=== PATIENT | female | born 1970 | race Caucasian/White ===

== ENCOUNTER 2021-06-09 17:00 | Outpatient (REF) | payer OTHER, SELFPAY | END 2021-06-09 17:01 | disposition home or self-care (01) | LOC: HO.LNP 17:00 | PROVIDERS: Visit Provider Hospitalist | DX: Z20.822 Contact with and (suspected) exposure to COVID-19 (principal); J01.90 Acute sinusitis, unspecified | CPT/HCPCS: U0003; U0005 ==

== ENCOUNTER 2022-02-25 08:03 | Outpatient (REF) | payer OTHER, SELFPAY ==
[2022-02-25 08:43] LABS: Hemoglobin 13.4 g/dl (12.0-16.0); Mean Corpuscular HGB Conc 32.7 g/dl (31.0-35.0); Mean Corpuscular Hemoglobin 29.9 pg (27.0-33.0); Mean Corpuscular Volume 91.5 fL (80.0-98.0); Mean Platelet Volume 9.8 fL (9.4-12.3); Platelet Count 257 X10*3/uL (160-400); Red Blood Count 4.48 X10*6/uL (4.20-5.50); Red Cell Distribution Width 12.6 % (11.0-16.0); White Blood Count 5.9 X10*3/uL (4.8-10.8)
[2022-02-25 09:27] LABS: Alanine Aminotransferase 18 U/L (0-31); Alkaline Phosphatase 91 U/L (39-117); Anion Gap 14 (12-20); Aspartate Amino Transferase 24 U/L (5-31); Bilirubin Total 0.4 mg/dL (0.0-1.0); Blood Urea Nitrogen 12 mg/dL (9-16); Calcium 9.5 mg/dL (8.4-10.2); Carbon Dioxide 24 mmol/L (22-29); Chloride 104 mmol/L (96-108); Cholesterol 255 mg/dL; Estimated Glomerular Filt Rate > 60; Glucose Fasting 114 mg/dL (60-99); HDL Cholesterol 54 mg/dL; LDL Cholesterol Calculated 177 mg/dl; Potassium 4.5 mmol/L (3.3-5.1); Sodium 137 mmol/L (135-145); Total Protein 6.9 g/dL (6.5-8.0); Triglycerides 120 mg/dL
[2022-02-25 09:32] LABS: TSH reflex Free T4 1.37 uIU/mL (0.32-4.0)
== END 2022-02-25 08:04 | disposition home or self-care (01) ==
LOC: HO.LAB 08:03
PROVIDERS: PCP Hospitalist; Visit Provider Hospitalist
DX: Z00.00 Encounter for general adult medical examination without abnormal findings (principal)
CPT/HCPCS: 36415; 80053; 80061; 84443; 85027

== ENCOUNTER 2024-02-03 08:07 | Outpatient (AMB) | payer OTHER, SELFPAY ==
--- NOTE | 2024-02-03 08:24 | AM.OFFWIN_ITS ---
Intake Vital Signs 02/03/24 08:29 Height 5 ft 1 in Weight 186 lb BMI 35.1 BP 122/80 Blood Pressure Location Lt brachial Position Sitting Pulse 108 H Pulse Source Pulse Oximeter Temp 97.8 F Temp Source Temporal Artery Scan Pulse Oximetry (%) 98 Oxygen Delivery Method Room Air Intake Visit Reasons: EP Flu like symptoms Intake Note: pt is here today for flu like symptoms started yesterday Patient Tobacco Use Status: Current someday Tobacco user Allergies No Known Allergies [No Known Allergies*] Allergy (Verified 02/08/24 09:26) Do you need a note to return to daycare/school/sports/work: Yes HPI EP Flu like symptoms HPI Details Patient is a 53-year-old female who comes to the walk-in clinic complaining of acute onset of fatigue, chills, postnasal drip, runny nose, nasal congestion, mild shortness of breath, and ear pressure that started yesterday. She states that she did have contact with her sick niece with similar symptoms. She checked for COVID at home and was negative. She denies underlying respiratory conditions, and denies nausea vomiting or diarrhea, chest pain, dizziness, weakness, discharge from the ears, myalgias, or other significant associated symptoms. [facility] Medical History High cholesterol Family History Mother COPD (chronic obstructive pulmonary disease) Father Heart attack Sister Osteoporosis Arthritis Sister Fibromyalgia Acute back pain with sciatica Sister Pacemaker Sister Hypothyroid Cancer Brother Hyperthyroidism Social History Housing: House Patient Tobacco Use Status: Current someday Tobacco user Cigarettes Per Day: 2 Current occupational status: employed Cognitive needs: No Hearing needs: No Vision needs: No Review of Systems Const All systems reviewed & are unremarkable except as noted in HPI and below Physical Exam Vital Signs: Last Vital Signs Temp 97.8 F 02/03/24 08:29 Pulse 108 H 02/03/24 08:29 BP 122/80 02/03/24 08:29 Pulse Ox 98 02/03/24 08:29 Oxygen Delivery Method Room Air 02/03/24 08:29 BMI result Body Mass Index 35.1 Const General: cooperative, alert, awake, Physically active, ill appearing and well groomed; No comfortable, anxious, diaphoretic, intoxicated appearing or poor hygiene Nutritional Appearance: average body habitus Orientation/consciousness: oriented to person Limitations: no limitations HEENT Head: Yes normal to inspection, Yes normocephalic and Yes atraumatic Ears: hearing grossly normal bilaterally, external ears normal, TM's normal bilaterally and EAC's normal General nose exam: Normal external nose present, No nasal discharge present, Abnormal mucous membranes and turbinates present and Nasal discharge present Face and sinus: Yes normal facial exam, Yes sinuses nontender and Yes face symmetric Mouth: Normal oral and palatal mucosa present, lip normal and tongue normal Throat: Yes uvula midline, Yes abnormal tonsil, No peritonsillar mass, Yes postnasal drainage, No uvular edema and No cobblestoning Eyes General: appearance normal, both eyes and all related structures Neck Neck: Yes normal visual inspection and Yes full ROM Resp Effort & Inspection: normal respiratory effort, able to speak in complete sentences, no audible wheezes, Actively coughing, no grunting, not labored, no nasal flaring, no pursed lip breathing, no respiratory distress, no retractions, no stridor, no tripod positioning and symmetric chest movement Auscultation: clear to auscultation bilaterally, no crackles, no rales, no rhonchi, wheezes (Mostly upper bilaterally), lung sounds not diminished and No rub present Cardio Palpation: normal PMI Rhythm: regular rhythm Heart sounds: S1 normal heart sound present and S2 normal heart sound present Skin Other: Good color, warm and dry Neuro General: oriented to person Psych Appearance: grossly normal Mental Status: mental status grossly normal Speech and movement: Normal speech and movement present Affect: normal affect Attitude: cooperative Thought process: Normal thought process present Insight: Good insight present (Psych) Judgement: Good judgement present (Psych) Results AMB Rapid Strep AMB Rapid Strep Negative Last Edit by Alfonso Gutierrez MA on 02/03/24 08:41 Results Reviewed Results Reviewed: Laboratory Last Values Strep Scn Rapid Clinic Negative 02/03/24 08:40 Assessment & Plan Assessment & Plan (1) Viral syndrome: Code(s): B34.9 - Viral infection, unspecified Plan: Patient is a 53-year-old female comes to the walk-in clinic with acute viral syndrome symptoms. She was wheezing on exam, and reported feeling a little short of breath, so a two-view chest x-ray was done today, which looked unremarkable for acute cardiopulmonary issues. Pending flu COVID RSV results. I wrote her for course of prednisone for the wheezing and cough, and a course of antibiotics was added. I also wrote her for a trial of Tessalon Perles. She knows to follow up if symptoms persist or worsen, or go to the emergency department with worrisome symptoms. Orders: Orders SARS-CoV2/FLU/RSV 02/03/24 R05.9 - Cough, unspecified XR chest 2V 02/03/24 R05.9 - Cough, unspecified Medications: New prednisone then take 3 tabs for 3 days, then 2 tabs for 3 days, then 1 tab for 3 days. 40 mg (4 x 10 mg) PO DAILY 30 tabs 0RF 3 days azithromycin take 500 mg today (day 1), then 250 mg for 4 days (days 2-5) PO 6 tabs 0RF benzonatate 100 mg PO BID-TID PRN 30 caps 0RF cough oseltamivir (Tamiflu) 75 mg PO BID 10 caps 0RF 5 days Coding Level of Care Code Est Pt Level 4 (37164) Diagnoses Viral syndrome B34.9
[2024-02-03 08:29] VITALS: BP 122/80; PULSE 108; TEMP 36.6; O2SAT 98; BMI 35.1
== END 2024-02-03 09:01 | disposition home or self-care (01) ==
PROVIDERS: PCP Hospitalist; Visit Provider Physician Assistant Medical
DX: B34.9 Viral infection, unspecified (principal)
CPT/HCPCS: 99214

== ENCOUNTER 2024-02-03 08:48 | Outpatient (REF) | payer OTHER, SELFPAY ==
--- NOTE | ~2024-02-03 | XR_ITS ---
EXAMINATION: XR CHEST CLINICAL INFORMATION: Cough COMPARISON: 01/08/2020 TECHNIQUE: 2 views of the chest were obtained. FINDINGS: No significant abnormality is noted involving the heart, lungs, mediastinum, bony thorax or soft tissues. XR/XR chest 2V IMPRESSION: Unremarkable examination with no interval change.
[2024-02-03 11:32] LABS: Influenza A PCR POSITIVE (Negative); Influenza B PCR NEGATIVE (Negative); Resp Syncy Virus RNA Qual PCR NEGATIVE (Negative); SARS COV2 PCR INHOUSE NEGATIVE (Negative)
== END 2024-02-03 08:49 | disposition home or self-care (01) ==
LOC: HO.HMGCX 08:48
PROVIDERS: PCP Internal Medicine; Visit Provider Physician Assistant Medical
DX: R05.9 Cough, unspecified (principal); Z11.52 Encounter for screening for COVID-19
CPT/HCPCS: 0241U; 71046

== ENCOUNTER 2024-02-08 08:40 | Outpatient (AMB) | payer OTHER, SELFPAY ==
[2024-02-08 09:11] VITALS: BP 128/90; PULSE 93; TEMP 36.7; O2SAT 96; BMI 35.2
--- NOTE | 2024-02-08 09:11 | MHC.OFFWIV ---
Intake Vital Signs 02/08/24 09:11 Height 5 ft 1 in Weight 186 lb 6 oz BMI 35.2 BP 128/90 H Blood Pressure Location Lt brachial Position Sitting Pulse 93 Pulse Source Pulse Oximeter Temp 98.1 F Temp Source Oral Pulse Oximetry (%) 96 Oxygen Delivery Method Room Air Intake Visit Reasons: EP sinus congestion cough Intake Note: Pt is here today for a cough and RT ear pain. Patient Tobacco Use Status: Current someday Tobacco user Allergies No Known Allergies [No Known Allergies*] Allergy (Verified 02/08/24 09:26) Medication List - Last Reconciled 02/08/24 by Omer Parikh MD ibuprofen 800 mg PO Q8H Do you need a note to return to daycare/school/sports/work: Yes HPI EP sinus congestion cough HPI Details 53 yr old female presents to the office for a follow up visit. Finished her antibiotic course. Did not take the prednisone as she was feeling jittery after taking the first dose. Continues to have a non productive cough and wheezing. No fever or chills. Unable to work and needs a note extension. [facility] Medical History High cholesterol Family History Mother COPD (chronic obstructive pulmonary disease) Father Heart attack Sister Osteoporosis Arthritis Sister Fibromyalgia Acute back pain with sciatica Sister Pacemaker Sister Hypothyroid Cancer Brother Hyperthyroidism Social History Housing: House Patient Tobacco Use Status: Current someday Tobacco user Cigarettes Per Day: 2 Current occupational status: employed Cognitive needs: No Hearing needs: No Vision needs: No Physical Exam Vital Signs: Last Vital Signs Temp 98.1 F 02/08/24 09:11 Pulse 93 02/08/24 09:11 BP 128/90 H 02/08/24 09:11 Pulse Ox 96 02/08/24 09:11 Oxygen Delivery Method Room Air 02/08/24 09:11 BMI result Body Mass Index 35.2 Const General: cooperative and healthy appearing Nutritional Appearance: well nourished Orientation/consciousness: patient oriented x3 Limitations: no limitations HEENT Head: Yes normal to inspection Eyes General: appearance normal, both eyes and all related structures Neck Neck: Yes normal visual inspection Chest Chest palpation & inspection: normal palpation of entire chest wall Resp Other: Scattered wheeze. Effort & Inspection: normal respiratory effort Neuro General: patient oriented x3 Assessment & Plan Assessment & Plan (1) Upper respiratory tract infection: Code(s): J06.9 - Acute upper respiratory infection, unspecified Plan: Albuterol called in. Patient was advised to take atleat 20 mg prednisone at a time. NFW given. Coding Level of Care Code Est Pt Level 3 (67005) Diagnoses Upper respiratory tract infection J06.9
== END 2024-02-08 10:43 | disposition home or self-care (01) ==
PROVIDERS: PCP Internal Medicine; Visit Provider Internal Medicine
DX: J06.9 Acute upper respiratory infection, unspecified (principal)
CPT/HCPCS: 99213

== ENCOUNTER 2024-09-11 12:43 | Outpatient (AMB) | payer OTHER, SELFPAY ==
[2024-09-11 12:53] VITALS: BP 130/80; BMI 36.1
--- NOTE | 2024-09-11 12:53 | A.OFFPC_ITS ---
Vital Signs 09/11/24 12:53 Height 5 ft 1 in Weight 191 lb BMI 36.1 BP 130/80 Blood Pressure Location Lt brachial Position Sitting Intake Visit Reasons: MISSY Dr. Eaton- meds/NEEDS PHQ-9 Director Of Ancillary Services Required: No Accompanied by: Self / Same As Patient Allergies No Known Allergies [No Known Allergies*] Allergy (Verified 09/11/24 13:03) Medication List - Last Reconciled 09/11/24 by Deana Mcdowell MD No Known Home Meds Tobacco use date assessed: 09/11/24 Dental Screening Dental Screen Date: 09/11/24 Did you have a dental visit in the last 12 months?: Yes Did you have a dental problem in the last 6 months where you did not have access to dental care?: No Was dental information given to patient?: Patient has dentist HPI HPI Comments History of Present Illness Details - Mammogram: Over a year ago, with refer ral planned for updated screening. - Pap smear: Last conducted over six yea rs ago in [place], with a referral to OBGYN for the procedure. - Colonoscopy: Has not had one; will be sent for a Cologuard test. - Influenza vaccine: Reports allergic re action. - TDAP vaccine: Administered approximate ly eight years ago. This is a 54-year-old female that comes for her physical exam. Mammogram done over a year ago and a new mammogram will be ordered. Has never had a colonoscopy and is willing to do Cologuard. Last Pap smear done about 6 years ago. Will be referred to OBGYN for Pap smear. Complains of heartburn and constipation and will be referred to Gastroenterology. Also complains of right sinus tenderness that started about 2 days ago and I will order antibiotic and nasal spray. Also has left shoulder pain with limited elevation and abduction and will be referred to physical therapy. She is obese with a BMI of 36.1 and was advised to do diet and exercise to reach BMI goal less than 30. [facility] Medical History (Updated 09/11/24 @ 13:30 by Deana Mcdowell MD) High cholesterol Surgical History History of Family History Mother COPD (chronic obstructive pulmonary disease) Father Heart attack Sister Osteoporosis Arthritis Sister Fibromyalgia Acute back pain with sciatica Sister Pacemaker Sister Hypothyroid Cancer Brother Hyperthyroidism Family/Other Substance use disorder Mental health disorder Social History Housing: House Alcohol intake: never Patient Tobacco Use Status: Current everyday Tobacco user Tobacco use type: Cigarette Cigarettes Per Day: 4 e-Cigarette/Vaping Use: Never Used Second Hand Smoke Exposure: No service: No Current occupational status: employed Current occupational exposures/hazards: No Cognitive needs: No Hearing needs: No Vision needs: No Questionnaire PHQ-9 Over the last 2 weeks, how often have you been bothered by any of the following problems? 1. Little interest or pleasure in doing things: not at all 2. Feeling down, depressed, or hopeless: not at all 3. Trouble falling or staying asleep, or sleeping too much: not at all 4. Feeling tired or having little energy: not at all 5. Poor appetite or overeating: not at all 6. Feeling bad about yourself - or that you are a failure or have let yourself or your family down: not at all 7. Trouble concentrating on things, such as reading the newspaper or watching television: not at all 8. Moving or speaking so slowly that other people could have noticed. Or the opposite - being so fidgety or restless that you have been moving around a lot more than usual: not at all 9. Thoughts that you would be better off or of hurting yourself in some way: not at all Total score: 0 Depression Screening Interpretation: Negative Depression Screening Done: Yes 37961 - PHQ-9 Billing: Yes Source: Developed by Drs. Alvino Wang, Jannette Covarrubias, Joce Zimmerman and colleagues, with an educational nakul from [employer]. Thrive Questionnaire Date Thrive assessed: 09/11/24 I am a: Patient What is your living situation today?: I have a steady place to live Within the past 12 months, did the food you bought not last and you didn't have the money to get more?: Never true Within the past 12 months, did you worry whether your food would run out before you got money to buy more?: Never true Do you have trouble paying for medicines?: No Do you have trouble getting transportation to medical appointments?: No Do you have trouble paying your heating and electricity bill?: No Do you have trouble taking care of your child, family member or friend?: No Do you have trouble with day-to-day activities such as bathing, preparing meals, shopping, managing finances, etc.?: No Are you currently unemployed and looking for a job?: No Are you interested in more education?: No Please select the resources that you would like help with: None Currently or been in a relationship where the following occur: No concerns reported THRIVE Score: 0 AUDIT C Alcohol Use Questionnaire (AUDIT-C) 1. How often do you have a drink containing alcohol?: Never Total Score: 0 Score Reviewed/Action Taken: No DEVON-7 AMB Questionnaire DEVON-7 Date DEVON - 7 assessed: 09/11/24 Feeling nervous, anxious, or on edge: 0 = Not at all Not being able to stop or control worryin = Not at all Worrying too much about different things: 0 = Not at all Trouble relaxin = Not at all Being so restless that it is hard to sit still: 0 = Not at all Becoming easily annoyed or irritable: 0 = Not at all Feeling afraid as if something awful might happen: 0 = Not at all Total DEVON-7 score (0-4 normal; 5-9 mild; 10-14 moderate; 15-21 severe): 0 Source: Developed by Drs. Alvino Wang, Jannette Covarrubias, Joce Zimmerman and colleagues, with an educational nakul from [employer]. DEVON-7 Assessment Billing DEVON-7 Assessment Tool: DEVON-7 Assessment 82764 Review of Systems Const All systems reviewed & are unremarkable except as noted in HPI and below ENT Reports sinus pain Card Denies chest pain at rest, Denies chest pain with activity, Denies edema, Denies irregular heart rhythm, Denies claudication, Denies dyspnea, Denies dyspnea on exertion, Denies orthopnea, Denies paroxysmal nocturnal dyspnea and Denies slow heart rate Resp Denies cough, Denies dyspnea and Denies dyspnea on exertion GI Reports abdominal pain, Reports constipation, Reports dyspepsia and Reports heartburn Musc Denies abnormal gait, Denies atrophy, Denies deformity, Reports arthralgias and Reports limited range of motion Neuro Denies abnormal gait and Denies lack of coordination Physical exam (Primary Care) Vital Signs: Last Vital Signs BP 130/80 09/11/24 12:53 BMI result Body Mass Index 36.1 BMI Assessment/Plan discussion: High BMI High, discussed plan: lifestyle, weight reduction, dietary and physical activity Tobacco/Smoking Status: Tobacco use Status Tobacco use date assessed 09/11/24 09/11/24 13:01 Patient Tobacco Use Status Current everyday Tobacco 09/11/24 13:01 Tobacco use type Cigarette 09/11/24 13:01 e-Cigarette/Vaping Use Never Used 09/11/24 13:01 Are you ready to quit: No Tobacco cessation counseling provided: Yes Items discussed: Nicotine replacement and [employer] Relapse Prevention: discussed the importance of a supportive environment, discussed negative mood or depression after quitting, weight gain after smoking is common and discussed dietary, exercise and/or lifestyle changes Number of minutes spent counselin CPT code: 28670 - 4-10 Minutes PHQ-9: PHQ-9 Score PHQ-9: Total score 0 09/11/24 13:01 Depression Screening Interpretation: Negative Thrive Assessment: Date of Thrive Assessment Date Thrive assessed 09/11/24 09/11/24 13:01 Currently or been in a relationship where the following occur: No concerns reported HENNE Head: Yes normal to inspection, Yes normocephalic and Yes atraumatic Ears: external ears normal Eyes General: appearance normal, both eyes and all related structures Eyelids: Yes eyelids normal Conjunctivae: conjunctivae normal Neck Neck: Yes normal visual inspection and Yes supple Resp Effort & Inspection: normal respiratory effort Auscultation: clear to auscultation bilaterally Cardio Jugular venous distension: no JVD Rate: regular rate Rhythm: regular rhythm Heart sounds: S1 normal heart sound present and S2 normal heart sound present GI Inspection: Yes normal to inspection Palpation (GI): Soft to palpation and nontender Auscultation: normal bowel sounds Skin General skin exam: no rashes or lesions noted Neuro General: no focal motor deficits Extrem General: Yes full ROM Psych Appearance: grossly normal Office Procedures Flu Questionnaire Does the patient have a severe egg allergy?: No Immunizations Fluarix Triv [id number] (PF) 45 mcg (15 mcg x 3)/0.5 mL IM syringe Performing Provider: Deana Mcdowell MD Performing Location: [facility] [place] [facility] Documented (not given) by: ROCIO Torres on 09/11/24 13:02 Reason Not Given: Patient Refused Coding Level of Care Code Est Pt Level 4 (99689) Est Pt Prev Care 40-64y(08024) Diagnoses Physical exam Z00.00 Left shoulder pain M25.512 Chronic GERD K21.9 Chronic idiopathic constipation K59.04 Acute sinusitis J01.90 Additional Codes PHQ-9 - 12327 - PHQ-9 Billing: Yes ([id number]) DEVON-7 Assessment Billing - DEVON-7 Assessment Tool: DEVON-7 Assessment 44667 ([id number]) Vital Signs *Quality* - CPT code: 99312 - 4-10 Minutes ([id number]) Time Spent (min) 40 Assessment & Plan Assessment & Plan (1) Physical exam: Code(s): Z00.00 - Encounter for general adult medical examination without abnormal findings Category: Medical (2) Left shoulder pain: Code(s): M25.512 - Pain in left shoulder Category: Medical (3) Chronic GERD: Code(s): K21.9 - Gastro-esophageal reflux disease without esophagitis Category: Medical (4) Chronic idiopathic constipation: Code(s): K59.04 - Chronic idiopathic constipation Category: Medical (5) Acute sinusitis: Code(s): J01.90 - Acute sinusitis, unspecified Category: Medical Plan 1. Sinusitis: Prescribe an antibiotic course as the patient shows no medication allergies. Consider nasal spray usage to alleviate symptoms. 2. Tobacco Use: Encourage cessation by reattempting nicotine patches and lifestyle modifications. Explore additional smoking cessation resources like [employer]. 3. Health Maintenance: Refer patient for mammogram, Pap smear, and Cologuard to perform relevant screenings. Update tetanus vaccine as appropriate. Patient was informed and verbally consented to the use of an ambient scribe for clinic note documentation during this visit. I discussed with the patient the indications and procedures for the proposed diagnostic tests and referrals. The importance of updating the mammogram, Pap smear, and including a screening strategy for colon cancer through Cologuard was highlighted. The patient was educated on the benefits, risks, and expectations of the Cologuard compared to a traditional colonoscopy. Smoking cessation was emphasized, alongside providing resources and discussing lifestyle modifications to support her efforts. The differential diagnosis and plans for sinusitis manag ement were outlined, including the use of antibiotics and nasal spray. The delays and necessity in updating vaccinations and health screenings were reviewed with the patient. Orders: Orders Influenza [id number] Immunization Today Z23 - Encounter for immunization MM tomosynthesis screening BI Today Z12.31 - Encounter for screening mammogram for malignant neoplasm of breast [place] upper GI series Today K21.9 - Gastro-esophageal reflux disease without esophagitis Lipid Panel Today E78.5 - Hyperlipidemia, unspecified Comprehensive [place]. 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 - Attempt to reduce smoking with nicotine patches and other recommended methods. - Follow through with referrals for mammogram, Pap smear, and Cologuard. - Avoid influenza vaccine due to previously reported allergic reaction. - Consider using nasal spray as needed for sinus relief. - Monitor any changes in sinus symptoms, and seek care if symptoms worsen.
== END 2024-09-11 13:23 | disposition home or self-care (01) ==
LOC: HO.HMCH 12:43
PROVIDERS: PCP Internal Medicine; Visit Provider Internal Medicine
DX: Z00.00 Encounter for general adult medical examination without abnormal findings (principal); M25.512 Pain in left shoulder; K21.9 Gastro-esophageal reflux disease without esophagitis; K59.04 Chronic idiopathic constipation; J01.90 Acute sinusitis, unspecified

== ENCOUNTER → 2024-09-11 12:43 | Outpatient (BNVA) | payer OTHER, SELFPAY | PROVIDERS: PCP Internal Medicine; Visit Provider Internal Medicine | DX: Z00.00 Encounter for general adult medical examination without abnormal findings (principal); M25.512 Pain in left shoulder; K21.9 Gastro-esophageal reflux disease without esophagitis; K59.04 Chronic idiopathic constipation; J01.90 Acute sinusitis, unspecified | CPT/HCPCS: 96127; 99212; 99396 ==

== ENCOUNTER 2024-11-20 08:27 | Outpatient (REF) | payer OTHER, SELFPAY ==
--- OUTSIDE RECORDS SUMMARY | 2024-11-20 14:08 | XMS_ITS | Clinical Summary ---
Author Organization [facility] ity Address [address] [place] [address] Care Team Providers Care Boring Inspector Name Role Phone Unavailable Primary Care Provider Unavailabl e Social History Tobacco Use Types Packs/Day Years Used Date Smoking Tobacco: Never Assessed Sex and Gender Information Value Date Recorded Sex Assigned at Not on file Gender Identity Not on file Sexual Orientation Not on file Plan of Treatment Health Maintenance Due Date Last Done Comments Breast Cancer Screening 1969 DTaP,Tdap,and Td Vaccines (1 - Tdap) 1988 Hepatitis B Vaccines (1 of 3 - 19+ 3-dose series) 1988 Cervical Cancer Screening: P ap Smear 1990 Zoster Vaccines (1 of 2) 2019 Colorectal Cancer Screening: Colonoscopy 05/09/2024 Depression Screening 05/09/2024 HIV Screening 05/09/2024 Hepatitis C Screening 05/09/2024 Social Influencers of Health Screening 05/09/2024 COVID-19 Vaccine (1 - 2023-2 5 season) 2024 Influenza Vaccine (#1) 2024 HIB Vaccines Aged Out No longer eligi ble based on patient's age to complete this topic HPV Vaccines Aged Out No longer eligi ble based on patient's age to complete this topic Hepatitis A Vaccines Aged Out No long er eligible based on patient's age to complete this topic IPV Vaccines Aged Out No longer eligi ble based on patient's age to complete this topic MMR Vaccines Aged Out No longer eligi ble based on patient's age to complete this topic Meningococcal ACWY Vaccine Aged Out N o longer eligible based on patient's age to complete this topic Pneumococcal Vaccine: Pediat rics (0 to 5 Years) and At-Risk Patients (6 to 64 Years) Aged Out No longer eligible b ased on patient's age to complete this topic RSV Immunization Patients Un demetri 20 months Aged Out No longer eligible b ased on patient's age to complete this topic Varicella Vaccines Aged Out No longer eligible based on patient's age to complete this topic
--- OUTSIDE RECORDS SUMMARY | 2024-11-20 14:08 | XMS_ITS | Continuity of Care Document ---
Author Organization [facility] Address [address] [place] [address] Phone Care Team Providers Care Manager Regional Sales Name Role Phone Kasey Rousseau APN Unavailable Unavailable Allergies, Adverse Reactions, Alerts Substance Reaction Status Criticality No Known Allergies Active No Inform ation Medications Medication Instructions Dosage Effective Dates (start - stop) Status Comments Medrol (Gil) 4 mg tablets in a dose pack use as directed - Active Flonase 50 mcg/actuation nasal spray,suspension spray 2 spray by intranasal route every day in each nostril 2 spray - Active Augmentin 875 mg-125 mg tablet take 1 tablet by oral route every 12 hours - Active ProAir HFA 90 mcg/actuation aerosol inhaler inhale 2 puff by inhalation route every 4 - 6 hours as needed - Active Procedures Procedure Date Office/outpatient visit,est, mod 2015 Advance Directives Directive Yes / No Effective Date File Name No Information Encounters Encounter Description Practice Location Reason(s) For Visit Diagnoses Date Provider Office/outpat ient visit,est, mod [facility], [address] [place] [address], [facility], [place] tel:[phone] [facility] Acute otitis media, bilateralAcute non-recurrent maxillary sinusitisBody mass index (BMI) 35.0-35.9, adult 6 Soham Parks. Margarito Elmore, [id number] [address] [place] [address], [address], [place]. tel:[phone] [facility], [address] [place] [address], [facility], [place] tel:[phone] [address] [place] [address] cold symptoms (chief complaint) Acute sinusitis, unspecifiedBody mass index (BMI) 34.0-34.9, adult 6 Laney Calhoun. Margarito JmMary Anne KelseySimon Angela, [id number] 00, [place], [address], [place]. tel:[phone] [facility], [address] [place] [address], [facility], [place] tel:[phone] [place] [address] red eye (chief complaint) Bacterial conjunctivitis 5 Soham Parks. Dilma5 Apryl Miller., [id number] 00, [place], [address], [place]. tel:[phone] [facility], [address] [place] [address], [facility], tel:[phone] [place] [address] red arm (chief complaint) Local reaction to tetanus vaccineTetanus vaccine causing adverse effect in therapeutic use 5 Batsheva Vianey. [address] [facility], [id number] [address], [address], [place]. tel:[phone] [facility], [address] [place] [address], [facility], [place] tel:[phone] [place] [address] pap referral (chief complaint)cons tipation (chief complaint) ConstipationPap Abnormal HPV 5 Batsheva Vianey. [address] [facility], [id number] [address], [place], [facility], [place]. tel:[phone] [facility], [address] [place] [address], [address], [place] tel:[phone] [address] [place] [address] cold symptoms (chief complaint) Bronchitis 4 Batsheva Vianey. [address] [facility], [id number] [address], [address], [place]. tel:[phone] [facility], [address] [place] [address], [address], [place] tel:[phone] [place] [address] Work physical. (chief complaint) Annual Adult PhysicalEXAM ROUTINE - MED EXAM NEC-ADMIN PURP Dec-0 3 Janette Danielejagkareem lee. Opal Miller, [id number] 00, [place], [address], [place]. tel:[phone] [facility], [address] [place] [address], [address], [place] tel:[phone] [address] [place] [address] abcess (chief complaint) Abscess Of Vulva NEC 3 Gustavosimeon Fabi. [address], [id number] 00, [place], [address], [place] [facility], [address] [place] [address], [address], tel:[phone] [place] [address] abnormal pap (chief complaint)faci al pain+ cough nonproductive (chief complaint)inso mnia (chief complaint) Pap Abnormal HPVInsomnia, OtherInsomnia, Other Sep- 1 Necsutu Lydia. [address] [place] [address], [address], [place]. tel:[phone], [address], [place] tel:[phone] [address] [place] [address] annual pap; no complains (chief complaint) Pap Abnormal HPV May- 1 Necsutu Lydia. [address] [place] [address], [address], [place]. tel:[phone] [facility], [address] [place] [address], [address], [place] tel:[phone] [place] [address] Old abnormal bleeding (chief complaint) DUB - MENSTRUAL DISORDER NEC Dec-2 1 Vanessa Childers. [address] [place] [address], [id number] 00CC, [place], [address], [place]. tel:[phone], [address], [place] tel:[phone] [facility] MRA RESULT (chief complaint) Bronchitis, AcuteHEADACHE SYNDROME NEC 1 Nataliia Sesay. [address] [facility], [id number] 00, [place], [address], [place] [facility], [address] [place] [address], [facility], tel:[phone] [place] [address] NECK PAIN (chief complaint) UTI, UnspecifiedCERVICAL DISC DEGEN 0 Nataliia Sesay. 70 [facility], [id number] 00, [place], [place], [facility], [place]. [facility], [address] [place] [address], [facility], tel:[phone] [facility] physical/pap (chief complaint) Pap Screen Routine FUR CUTTER ExamBronchitis, Acute 0 Vanessa Childers. [address] [place], [id number] [place], [place], [address], . tel:[phone] [facility], [address] [place] [address], [facility], tel:[phone] [place] [address] Cough x 1wk (chief complaint) ACUTE SINUSITIS NOS 0 Vanessa Raygozaica. [address] [place], [id number] [place] [address], [address], . tel:[phone] [facility], [address] [place] [address], [facility], tel:[phone] [place] [address] smoking cessation (chief complaint) Smoker, Current,Smoker, Current,ALLERGIC RHINITIS NOSALLERGIC RHINITIS NOS Fe- 0 Necsutu Lydia. [address] [place], [address], [place]. tel:[phone] [facility], [address] [place] [address], [facility], tel:[phone] [place] [address] No Information 5-200 6 Batshvea Winters. [address] [facility], [id number] [address], [place], [facility], [place]. tel:[phone] Family History Family Member Type Diagnosis Age At Onset Father Problem (finding) raised blood lipids Father Problem (finding) coronary arterioscleros is Mother Problem (finding) Mother Problem (finding) chronic obstru ctive lung disease (Cause Of ) Immunizations Vaccine Date Status Comments Tdap administered Source: [facility] unization Record Payers Payer name Insurance type Covered libertarian ID Marily powell(s) [facility] [id number] Social History Type Description Quantity Date Captured Comments Alcohol Use Details No Caffeine Use Details Coffee 3 cups per day Tobacco Use Status Smoking Status Light tobacco smoker Sex Female Vital Signs Date / Time: Height Weight BMI Pulse Rate Blood Pressure Temperature Respiratory Rate Body Surface Area Head Circumference Head Circ. Percentile Wt./[place]. Percentile BMI percentile Pulse Ox Inhaled Ox 9:04 AM 60.00 in 81.647 kg (180.00 lbs) 35.1 5 kg/m eter (2) 76 /min 131/92 mm[Hg] 97.90 F 18 /min 1.86 meter(2) Chief Complaint And Reason For Visit No Information Plan Of Treatment Date Type Action Status Goal Tobacco cessation counseling completed Goal Tobacco cessation counseling completed Goal Tobacco cessation counseling completed Referral Ordered: Obstetrics/Pharmacy Picking Technician (related to Pap Abnormal HPV) ordered Referral Referred To: Benjamín Lund MD [address] [place], [address] [phone] Ordered: Referral: Obstetrics/Pharmacy Picking Technician Benjamín Lund MD ordered Future Order: Lab Order Gynecolo gic Pap Test ([id number]), Sent on: Sent Future Order: Lab Order CBC With Differential/Platelet ([id number]), Appointment on: , Sent on: Sent Future Order: Lab Order Comp. Me tabolic Panel (14) ([id number]), Sent on: Sent Future Order: Lab Order Lipid Pa cayetano ([id number]), Sent on: Sent Future Order: Lab Order TSH ([id number]), Sen t on: Sent Future Order: Lab Order Urinalys is, Complete ([id number]), Sent on: Sent History Of Present Illness Encounter Date Complaint History Of Prese nt Illness cold symptoms The patient desc ribes the cough as dry. There are no aggravating factors. There are no relieving factors. Associated symptoms include nasal congestion and sinus pressure. Pertinent negatives include chills, cough, dyspnea, dyspnea on exertion, epistaxis, fatigue, fever, heartburn, hemoptysis, hoarseness, night sweats, pleuritic pain, post-nasal drainage, rhinitis, rhinorrhea, sore throat, weight loss and wheezing. red eye She states the s ymptoms are acute and are of new onset. pt presented c/o red ad swollen eyes with sticky yellow crusty discharge red arm The symptoms are reported as being moderate. The symptoms occur constantly. She states the symptoms are acute. 3 days ago shot site got red, hot, tender and has been sore since. less red today constipation Onset: month ago . It occurs monthly. The problem is worse. Context: h/o depression. Symptom is aggravated by eating rice. Denies relieving factors. She is also experiencing abdominal pain and change in appetite. Additional information: feels full and gets constipated when eats rice. pap referral The symptoms are reported as being mild. The symptoms occur constantly. She states the symptoms are chronic. had pap with loyd aden and says needs colposocpy referral- will obtain pap result Instructions Date Instruction Additional Infor edwige Take antibiotics until finished. Related to Acute otitis media, bilateral Increase rest. Related to Acute otitis media, bilateral Increase fluids Related to Acute otitis media, bilateral Tylenol or Ibuprofen PRN for fever or pain. Related to Acute otitis media, bilateral Finish antibiotics a s prescribed, change toothbrush, get plenty of rest, return to office if no improvement. Related to Acute otitis media, bilateral no q tips Related to Acute otitis media, bilateral Finish your antibiot ic as prescribed, change your toothbrush, get plenty of rest, return to office if no improvement. Related to Acute non-recurrent maxillary sinusitis Practice good hygiene/ good hand washing Related to Acute non- recurrent maxillary sinusitis Saline nasal spray to help clear nose. Related to Acute non- recurrent maxillary sinusitis Supportive Care Related to Acute non-recurrent maxillary sinusitis Take medications as prescribed, do not skip doses. Related to Acute non-recurrent maxillary sinusitis Take new medications as prescrib ed. Related to Acute non-recurrent maxillary sinusitis You must finish all antibiotics as ordered, do not stop them because you feel better. Related to Acute non-recurrent maxillary sinusitis Follow up if symptoms persist or worsen. Related to Acute non- recurrent maxillary sinusitis Finish your antibiot ic as prescribed, change your toothbrush, get plenty of rest, return to office if no improvement. Related to Acute sinusitis, unspecified Supportive Care Related to Acute sinusitis, unspecified Practice good hygiene/ good hand washing Related to Acute sinusitis, unspecified Saline nasal spray to help clear nose. Related to Acute sinusitis, unspecified Force Fluids Related to Acute sinusitis, unspecified Follow up if symptoms persist or worsen. Related to Acute sinusitis, unspecified hygiene reinforcedwa rm compresseschange bedding and towels 24 hrs after start of medicationmedication education, education and demonstration provided how to instill medication in the eyerto if no improvement in 3-4 dayscompliance with tx Related to Bacterial conjunctivitis Supportive Care Related to Bacte rial conjunctivitis Take medications as prescribed, do not skip doses. Related to Bacterial conjunctivitis Take new medications as prescrib ed. Related to Bacterial conjunctivitis Warm compress to affected area. Related to Bacterial conjunctivitis Follow up if symptoms persist or worsen. Related to Bacterial conjunctivitis Supportive Care Related to Bacte rial conjunctivitis Take medications as prescribed, do not skip doses. Related to Bacterial conjunctivitis Take new medications as prescrib ed. Related to Bacterial conjunctivitis Warm compress to affected area. Related to Bacterial conjunctivitis Follow up if symptoms persist or worsen. Related to Bacterial conjunctivitis symptomatic care rev iewed. return if any worse, or tuesday if no better, sooner any fever. nurse please complete a VAERS Related to Local reaction to tetanus vaccine referal dr lund for colposcop y Related to Pap Abnormal HPV stop eating rice. mo re fruits and vegetables and water. only zero calorie beverages. smaller servings of starches bread, cereal, pasta, potatos Related to Constipation Go to ER if symptoms persist or worsen Related to CERVICAL (HPV) DNA POS Prescribe medications Related to CERVICAL (HPV) DNA POS Review medication side effects R elated to CERVICAL (HPV) DNA POS Order labs/studies Related to Gy necologic Exam Prescribe medications Related to Gynecologic Exam Review medication side effects R elated to Gynecologic Exam Activity as tolerated Take new medication as prescribe d Instruct to keep a menstrual lila ry Instruct to do Kegel exercise Instruct to exercise regularly Instruct to lose weight Instruct to practice good perianal hygiene Go to ER if symptoms persist or worsen Related to ACUTE SINUSITIS NOS Prescribe medications Related to ACUTE SINUSITIS NOS Go to ER if symptoms persist or worsen Related to TOBACCO USE DISORDER Order labs/studies Related to TO BACCO USE DISORDER Review medication side effects R elated to TOBACCO USE DISORDER Prescribe medications Related to TOBACCO USE DISORDER Aerobic exercises recommended Re lated to TOBACCO USE DISORDER Order consults Related to TOBAC CO USE DISORDER Call if symptoms persist Related to Routine General Medical Exam Order labs/studies Related to Ro utine General Medical Exam Assessments Type Assessment Date assessment Acute otitis media, bilateral De assessment Acute non-recurrent maxillary si nusitis assessment Body mass index (BMI) 35.0-35.9, adult Mental Status Date Cognitive Assessment Orientation - [place] ed to time, place, person, situation.
[2024-11-20 15:02] LABS: Influenza A PCR NEGATIVE (Negative); Influenza B PCR NEGATIVE (Negative); Resp Syncy Virus RNA Qual PCR NEGATIVE (Negative); SARS COV2 PCR INHOUSE NEGATIVE (Negative)
== END 2024-11-20 08:28 | disposition home or self-care (01) ==
LOC: HO.LNP 08:27
PROVIDERS: PCP Internal Medicine; Visit Provider Physician Assistant
DX: J06.9 Acute upper respiratory infection, unspecified (principal)
CPT/HCPCS: 0241U; 99212

== ENCOUNTER 2025-02-14 09:24 | Outpatient (REF) | payer OTHER, SELFPAY ==
--- OUTSIDE RECORDS SUMMARY | 2025-02-14 10:20 | XMS_ITS | Clinical Summary ---
Author Organization [facility] Address [address] [place] [address] Care Team Providers Care Animal Control Licensing Worker Name Role Phone Unavailable Primary Care Provider Unavailabl e Social History Tobacco Use Types Packs/Day Years Used Date Smoking Tobacco: Never Assessed Comments Unknown Sex and Gender Information Value Date Recorded Sex Assigned at Not on file Legal Sex Female 1:39 PM EDT Gender Identity Not on file Sexual Orientation Not on file Plan of Treatment Health Maintenance Due Date Last Done Comments Breast Cancer Screening 1969 DTaP,Tdap,and Td Vaccines (1 - Tdap) 1988 Hepatitis B Vaccines (1 of 3 - 19+ 3-dose series) 1988 Cervical Cancer Screening: P ap Smear 1990 Pneumococcal Vaccine: 50+ Ye ars (1 of 1 - PCV) 2019 Zoster Vaccines (1 of 2) 2019 Colorectal Cancer Screening: Colonoscopy 05/09/2024 Depression Screening 05/09/2024 HIV Screening 05/09/2024 Hepatitis C Screening 05/09/2024 Social Influencers of Health Screening 05/09/2024 COVID-19 Vaccine ( - 2023-2 5 season) 2024 Influenza Vaccine (Season Ended) 2025 HIB Vaccines Aged Out No longer eligi [...] patient's age to complete this topic Meningococcal B Vaccine Aged Out No l onger eligible based on patient's age to complete [...]
--- OUTSIDE RECORDS SUMMARY | 2025-02-14 10:20 | XMS_ITS | Continuity of Care Document ---
Author Organization [facility] Address [address] [place] [address] Phone Care Team Providers Care Transmission Inspector Name Role Phone Kasey Rousseau APN Unavailable Unavailable Allergies, Adverse Reactions, Alerts Substance Reaction Status Criticality No Known Allergies Active No Inform ation Medications Medication Instructions Dosage Effective Dates (start - stop) Status Comments Augmentin 875 mg-125 mg tablet take 1 tablet by oral route every 12 hours - Active Flonase 50 mcg/actuation nasal spray,suspension spray 2 spray by intranasal route every day in each nostril 2 spray - Active Medrol (Gil) 4 mg tablets in a dose pack use as directed - Active ProAir HFA 90 mcg/actuation aerosol inhaler inhale 2 puff by inhalation route every 4 - 6 hours as needed - Active Procedures Procedure Date Office/outpatient visit,est, mod 2015 Advance Directives Directive Yes / No Effective Date File Name No Information Encounters Encounter Description Practice Location Reason(s) For Visit Diagnoses Date Provider Office/outpat ient visit,est, mod [facility], [address] [place] [address], [facility], [place] tel:[phone] [facility] Acute otitis media, bilateralAcute non-recurrent maxillary sinusitisBody mass index (BMI) 35.0-35.9, adult 6 Soham Parks. Margarito Elmore, [id number] [address] [place] [address], [address], . tel:[phone] [facility], [address] [place] [address], [facility], [place] tel:[phone] [address] [place] [address] cold symptoms (chief complaint) Acute sinusitis, unspecifiedBody mass index (BMI) 34.0-34.9, adult 6 Laney Calhoun. Margarito JmMary Anne KelseySimon Angela, [id number] 00, [place], [address], [place]. tel:[phone] [facility], [address] [place] [address], [facility], [place] tel:[phone] [place] [address] red eye (chief complaint) Bacterial conjunctivitis 5 Soham Parks. Dilma5 Apryl Miller., [id number] 00, [place], [address], [place]. tel:[phone] [facility], [address] [place] [address], [facility], tel:[phone] [address] [place] [address] red arm (chief complaint) Local reaction to tetanus vaccineTetanus vaccine causing adverse effect in therapeutic use 5 Batsheva Vianey. 70 [facility], [id number] [place], [place], [address], [place]. tel:[phone] [facility], [address] [place] [address], [facility], [place] tel:[phone] [address] [place] [address] pap referral (chief complaint)cons tipation (chief complaint) ConstipationPap Abnormal HPV 5 Batsheva Vianey. 70 [facility], [id number] [place], [place], [facility], [place]. tel:[phone] [facility], [address] [place] [address], [address], [place] tel:[phone] [address] [place] [address] cold symptoms (chief complaint) Bronchitis 4 Batsheva Vianey. 70 [facility], [id number] [place], [place], [address], [place]. tel:[phone] [facility], [address] [place] [address], [address], [place] tel:[phone] [address] [place] [address] Work physical. (chief complaint) Annual Adult PhysicalEXAM ROUTINE - MED EXAM NEC-ADMIN PURP Dec-0 3 Janette Danielejagkareem lee. Opal Miller, [id number] 00, [place], [address], [place]. tel:[phone] [facility], [address] [place] [address], [address], [place] tel:[phone] [address] [place] [address] abcess (chief complaint) Abscess Of Vulva NEC 3 Gustavosimeon Fabi. [address], [id number] 00, [place], [address], [place]. [facility], [address] [place] [address], [address], tel:[phone] [address] [place] [address] abnormal pap (chief complaint)faci al pain+ cough nonproductive (chief complaint)inso mnia (chief complaint) Pap Abnormal HPVInsomnia, OtherInsomnia, Other Sep- 1 Necsutu Lydia. [address] [place] [address], [address], [place]. tel:[phone], [address], [place] tel:[phone] [address] [place] [address] annual pap; no complains (chief complaint) Pap Abnormal HPV May- 1 Necsutu Lydia. [address] [place] [address], [address], [place]. tel:[phone] [facility], [address] [place] [address], [address], [place] tel:[phone] [address] [place] [address] Old abnormal bleeding (chief complaint) DUB - MENSTRUAL DISORDER NEC Dec-2 1 Vanessa Childers. [address] [place] [address], [id number] [address]CC, [place], [address], [place]. tel:[phone], [address], [place] tel:[phone] [facility] MRA RESULT (chief complaint) Bronchitis, AcuteHEADACHE SYNDROME NEC 1 Nataliia Sesay. 70 [facility], [id number] 00, [place], [address], [place]. [facility], [address] [place] [address], [facility], tel:[phone] [address] [place] [address] NECK PAIN (chief complaint) UTI, UnspecifiedCERVICAL DISC DEGEN 0 Nataliia Sesay. 70 [facility], [id number] 00, [place], [place], [facility], [place]. [facility], [address] [place] [address], [facility], tel:[phone] [facility] physical/pap (chief complaint) Pap Screen Routine ACLS NURSE ExamBronchitis, Acute 0 Vanessa Childers. [address] [facility], [id number] [place], [address], . tel:[phone] [facility], [address] [place] [address], [facility], tel:[phone] [address] [place] [address] Cough x 1wk (chief complaint) ACUTE SINUSITIS NOS 0 Vanessa Raygozaica. 3 [facility], [id number] [place] [address], [address], . tel:[phone] [facility], [address] [place] [address], [facility], tel:[phone] [address] [place] [address] smoking cessation (chief complaint) Smoker, Current,Smoker, Current,ALLERGIC RHINITIS NOSALLERGIC RHINITIS NOS Fe- 0 Necsutu Ldyia. [address] [place], [address], [place]. tel:[phone] [facility], [address] [place] [address], [facility], tel:[phone] [address] [place] [address] No Information 5-200 6 Batsheva Winters. 70 [facility], [id number] [address], [place], [facility], [place]. tel:[phone] Family History Family Member Type Diagnosis Age At Onset Father Problem (finding) raised blood lipids Father Problem (finding) coronary arterioscleros is Mother Problem (finding) Mother Problem (finding) chronic obstru ctive lung disease (Cause Of ) Immunizations Vaccine Date Status Comments Tdap administered Source: [facility] unization Record Payers Payer name Insurance type Covered republican ID Marily powell(s) [facility] [id number] Social History Type Description Quantity Date Captured [...] Goal Tobacco cessation counseling completed Referral Ordered: Obstetrics/Shoe Cutter (related to Pap Abnormal HPV) ordered Referral Referred To: Benjamín Lund MD [address] [place], [address] [id number] Ordered: Referral: Obstetrics/Shoe Cutter Benjamín Lund MD ordered Future Order: Lab Order Gynecolo gic Pap Test ([id number]), Sent on: Sent Future Order: Lab Order CBC With Differential/Platelet ([id number]), Appointment on: , Sent on: Sent Future Order: Lab Order Comp. Me tabolic Panel (14) ([id number]), Sent on: Sent Future Order: Lab Order Lipid Pa cayetano ([id number]), Sent on: Sent Future Order: Lab Order TSH ([id number]), Sen t on: Sent Future Order: Lab Order Urinalys is, Complete ([id number]), Sent on: Sent History Of Present Illness [...] bread, cereal, pasta, potatos Related to Constipation Prescribe medications Related to CERVICAL (HPV) DNA POS Review medication side effects R elated to CERVICAL (HPV) DNA POS Go to ER if symptoms persist or worsen Related to CERVICAL (HPV) DNA POS Order labs/studies Related to Gy necologic Exam Prescribe medications Related to Gynecologic Exam Review medication side effects R elated to Gynecologic Exam Take new medication as prescribe d Activity as tolerated Instruct to do Kegel exercise Instruct to exercise regularly Instruct to keep a menstrual lila ry Instruct to lose weight Instruct to practice good perianal hygiene Prescribe medications Related to ACUTE SINUSITIS NOS Go to ER if symptoms persist or worsen Related to ACUTE SINUSITIS NOS Order consults Related to TOBAC CO USE DISORDER Prescribe medications Related to TOBACCO USE DISORDER Review medication side effects R elated to TOBACCO USE DISORDER Order labs/studies Related to TO BACCO USE DISORDER Go to ER if symptoms persist or worsen Related to TOBACCO USE DISORDER Aerobic exercises recommended Re lated to TOBACCO USE DISORDER Order labs/studies Related to Ro utine General Medical Exam Call if symptoms persist Related to Routine General Medical Exam Assessments Type Assessment Date assessment Acute otitis media, bilateral De assessment Acute non-recurrent maxillary si nusitis assessment Body mass index (BMI) 35.0-35.9, adult Mental Status Date Cognitive Assessment Orientation - Dat[place] ed to time, place, person, situation.
[2025-02-16 23:09] LABS: TS Negative Control Passed; TS Panel A 0; TS Panel B 0; TS Positive Control Passed; TSpotTB Negative (Negative)
== END 2025-02-14 09:25 | disposition home or self-care (01) ==
LOC: HO.LAB 09:24
PROVIDERS: PCP Internal Medicine; Visit Provider Internal Medicine
DX: Z11.1 Encounter for screening for respiratory tuberculosis (principal)
CPT/HCPCS: 36415; 86481

== ENCOUNTER 2025-02-25 08:37 | Outpatient (REF) | payer OTHER, SELFPAY ==
--- NOTE | ~2025-02-25 | XR_ITS ---
EXAMINATION: XR CHEST 2 VIEWS HISTORY: R05.9 - Cough, unspecified COMPARISON: Comparison is made with the prior examination dated 02/03/2024. FINDINGS: PA and lateral views of the chest are submitted. The lungs are expanded and clear. There is no pleural effusion, pneumothorax, or pulmonary vascular congestion. The heart is normal in size. The bones are intact. XR/XR chest 2V IMPRESSION: No acute cardiopulmonary abnormality. Electronically signed by: Alvino Adames MD 02/25/2025 09:50 AM EDT
--- OUTSIDE RECORDS SUMMARY | 2025-02-25 09:35 | XMS_ITS | Continuity of Care Document ---
Author Organization [facility] Address [address] [place] [address] Phone Care Team Providers Care History Faculty Member Name Role Phone Kasey Rousseau APN Unavailable [...] Diagnoses Date Provider Office/outpat ient visit,est, mod [facility], [address] [place] [address], [facility], [place] tel:[phone] [facility] Acute otitis media, bilateralAcute non-recurrent maxillary sinusitisBody mass index (BMI) 35.0-35.9, adult 6 Soham Parks. Margarito Elmore, [id number] [address] [place] [address], [address], . tel:[phone] [facility], [address] [place] [address], [facility], [place] tel:[phone] [address] [place] [address] cold symptoms (chief complaint) Acute sinusitis, unspecifiedBody mass index (BMI) 34.0-34.9, adult 6 Laney Calhoun. Margarito JmMary Anne KelseySimon Angela, [id number] 00, [place], [address], [place]. tel:[phone] [facility], [address] [place] [address], [facility], [place] tel:[phone] [place] [address] red eye (chief complaint) Bacterial conjunctivitis 5 Soham Parks. Dilma5 Apryl Miller., [id number] 00, [place], [address], [place]. tel:[phone] [facility], [address] [place] [address], [facility], tel:[phone] [address] [place] [address] red arm (chief complaint) Local reaction to tetanus vaccineTetanus vaccine causing adverse effect in therapeutic use 5 Batsheva Vianey. [facility], [id number] [place], [place], [address], [place]. tel:[phone] [facility], [address] [place] [address], [facility], [place] tel:[phone] [address] [place] [address] pap referral (chief complaint)cons tipation (chief complaint) ConstipationPap Abnormal HPV 5 Batsheva Vianey. 70 [facility], [id number] [address], [place], [facility], [place]. tel:[phone] [facility], [address] [place] [address], [address], [place] tel:[phone] [address] [place] [address] cold symptoms (chief complaint) Bronchitis 4 Batsheva Vianey. 70 [facility], [id number] [address], [place], [address], [place]. tel:[phone] [facility], [address] [place] [address], [address], [place] tel:[phone] [address] [place] [address] Work physical. (chief complaint) Annual Adult PhysicalEXAM ROUTINE - MED EXAM NEC-ADMIN PURP Dec-0 3 Janette Danielejagkareem lee. Opal Miller, [id number] 00, [place], [address], [place]. tel:[phone] [facility], [address] [place] [address], [address], [place] tel:[phone] [address] [place] [address] abcess (chief complaint) Abscess Of Vulva NEC 3 Gustavosimeon Fabi. [address], [id number] 00, [place], [address], [place]. [facility], [address] [place] [address], [address], tel:[phone] [place] [address] abnormal pap (chief complaint)faci al pain+ cough nonproductive (chief complaint)inso mnia (chief complaint) Pap Abnormal HPVInsomnia, OtherInsomnia, Other Sep- 1 Necsutu Lydia. [address] [place] [address], [address], [place]. tel:[phone], [address], [place] tel:[phone] [address] [place] [address] annual pap; no complains (chief complaint) Pap Abnormal HPV May- 1 Necsutu Lydia. [address] [place] [address], [address], [place]. tel:[phone] [facility], [address] [place] [address], [address], [place] tel:[phone] [address] [place] [address] Old abnormal bleeding (chief complaint) DUB - MENSTRUAL DISORDER NEC Dec-2 1 Vanessa Childers. [address] [place] [address], [id number] [address]CC, [place], [address], [place]. tel:[phone], [address], [place] tel:[phone] [facility] MRA RESULT (chief complaint) Bronchitis, AcuteHEADACHE SYNDROME NEC 1 Nataliia Sesay. 70 [facility], [id number] 00, [place], [address], [place]. [facility], [address] [place] [address], [facility], tel:[phone] [place] [address] NECK PAIN (chief complaint) UTI, UnspecifiedCERVICAL DISC DEGEN 0 Nataliia Sesay. 70 [facility], [id number] 00, [place], [place], [facility], [place]. 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 [address] [place], [id number] [place], [address], . tel:[phone] [facility], [address] [place] [address], [facility], tel:[phone] [address] [place] [address] Cough x 1wk (chief complaint) ACUTE SINUSITIS NOS 0 Vanessa Raygozaica. [address] [place], [id number] [place] [address], [address], . tel:[phone] [facility], [address] [place] [address], [facility], tel:[phone] [place] [address] smoking cessation (chief complaint) Smoker, Current,Smoker, Current,ALLERGIC RHINITIS NOSALLERGIC RHINITIS NOS Fe- 0 Necsutu Lydia. [address] [place], [address], [place]. tel:[phone] [facility], [address] [place] [address], [facility], tel:[phone] [place] [address] No Information 5-200 6 Batsheva Winters. 70 [facility], [id number] [address], [place], [facility], [place]. tel:[phone] Family History Family Member Type Diagnosis Age At Onset Father Problem (finding) raised blood lipids Father Problem (finding) coronary arterioscleros is Mother Problem (finding) Mother Problem (finding) chronic obstru ctive lung disease (Cause Of ) Immunizations Vaccine Date Status Comments Tdap administered Source: [facility] unization Record Payers Payer name Insurance type Covered constitution party ID Marily powell(s) [facility] [id number] Social History Type Description Quantity Date Captured [...] Goal Tobacco cessation counseling completed Referral Ordered: Obstetrics/Expansion Joint Finisher (related to Pap Abnormal HPV) ordered Referral Referred To: Benjamín Lund MD [address] [place], [address] [id number] Ordered: Referral: Obstetrics/Expansion Joint Finisher Benjamín Lund MD ordered Future Order: Lab Order Gynecolo gic Pap Test ([id number]), Sent on: Sent Future Order: Lab Order CBC With Differential/Platelet ([id number]), Appointment on: , Sent on: Sent Future Order: Lab Order Comp. Me tabolic Panel (14) ([id number]), Sent on: Sent Future Order: Lab Order Lipid Pa cayetaon ([id number]), Sent on: Sent Future Order: Lab Order TSH ([id number]), Sen t on: Sent Future Order: Lab Order Urinalys is, Complete ([id number]), Sent on: Sent History Of Present Illness [...] has been sore since. less red today pap referral The symptoms are reported as being mild. The symptoms occur constantly. She states the symptoms are chronic. had pap with loyd aden and says needs colposocpy referral- will obtain pap result constipation Onset: month ago . It occurs monthly. The problem is worse. Context: h/o depression. Symptom is aggravated by eating rice. Denies relieving factors. She is also experiencing abdominal pain and change in appetite. Additional information: feels full and gets constipated when eats rice. Instructions Date Instruction Additional Infor edwige Take [...] Mental Status Date Cognitive Assessment Orientation - [place] ed to time, place, person, situation.
== END 2025-02-25 08:38 | disposition home or self-care (01) ==
LOC: HO.HMGCX 08:37
PROVIDERS: PCP Internal Medicine; Visit Provider Nurse Practitioner Family
DX: R05.1 Acute cough (principal)
CPT/HCPCS: 71046; 99212

== ENCOUNTER 2025-02-25 08:37 | Outpatient (AMB) | payer OTHER, SELFPAY ==
--- OUTSIDE RECORDS SUMMARY | 2025-02-25 08:41 | XMS_ITS | Clinical Summary ---
Author Organization [facility] ity Address [address] [place] [address] Care Team Providers Care Wet Roller Name Role Phone Unavailable Primary Care Provider [...]
--- OUTSIDE RECORDS SUMMARY | 2025-02-25 08:41 | XMS_ITS | Continuity of Care Document ---
Author Organization [facility] Address [address] [place] [address] Phone Care Team Providers Care Manager Corporate Name Role Phone Kasey Rousseau APN Unavailable [...] Diagnoses Date Provider Office/outpat ient visit,est, mod [facility], [address] [place] [address], [facility], [place] tel:[phone] [facility] Acute otitis media, bilateralAcute non-recurrent maxillary sinusitisBody mass index (BMI) 35.0-35.9, adult 6 Soham Parks. Margarito Elmore, [id number] [address] [place] [address], [address], . tel:[phone] [facility], [address] [place] [address], [facility], [place] tel:[phone] [address] [place] [address] cold symptoms (chief complaint) Acute sinusitis, unspecifiedBody mass index (BMI) 34.0-34.9, adult 6 Laney Calhoun. Margarito JmMary Anne KelseySimon Angela, [id number] 00, [place], [address], [place]. tel:[phone] [facility], [address] [place] [address], [facility], [place] tel:[phone] [place] [address] red eye (chief complaint) Bacterial conjunctivitis 5 Soham Parks. Dilma5 Apryl Miller., [id number] 00, [place], [address], [place]. tel:[phone] [facility], [address] [place] [address], [facility], tel:[phone] [address] [place] [address] red arm (chief complaint) Local reaction to tetanus vaccineTetanus vaccine causing adverse effect in therapeutic use 5 Batsheva Vianey. 70 [facility], [id number] [place], [place], [address], [place]. tel:[phone] [facility], [address] [place] [address], [facility], [place] tel:[phone] [place] [address] pap referral (chief complaint)cons tipation (chief complaint) ConstipationPap Abnormal HPV 5 Batsheva Vianey. 70 [facility], [id number] [place], [place], [facility], [place]. tel:[phone] [facility], [address] [place] [address], [address], [place] tel:[phone] [place] [address] cold symptoms (chief complaint) Bronchitis 4 Batsheva Vianey. 70 [facility], [id number] [place], [place], [address], [place]. tel:[phone] [facility], [address] [place] [address], [address], [place] tel:[phone] [address] [place] [address] Work physical. (chief complaint) Annual Adult PhysicalEXAM ROUTINE - MED EXAM NEC-ADMIN PURP Dec-0 3 Janette Danielejagkareem lee. Opal Miller, [id number] 00, [place], [address], [place]. tel:[phone] [facility], [address] [place] [address], [address], [place] tel:[phone] [address] [place] [address] abcess (chief complaint) Abscess Of Vulva NEC 3 Gustavosimeon Fabi. [address], [id number] 00, [place], [address], [place]. [facility], [address] [place] [address], [address], tel:[phone] [place] [address] abnormal pap (chief complaint)faci al pain+ cough nonproductive (chief complaint)inso mnia (chief complaint) Pap Abnormal HPVInsomnia, OtherInsomnia, Other Sep- 1 Necsutu Lydia. [address] [place] [address], [address], [place]. tel:[phone], [address], [place] tel:[phone] [address] [place] [address] annual pap; no complains (chief complaint) Pap Abnormal HPV May- 1 Necsutu Lydia. [address] [place] [address], [address], [place]. tel:[phone] [facility], [address] [place] [address], [address], [place] tel:[phone] [address] [place] [address] Old abnormal bleeding (chief complaint) DUB - MENSTRUAL DISORDER NEC Dec-2 1 Vanessa Childers. [address] [place] [address], [id number] [address]CC, [place], [address], [place]. tel:[phone], [address], [place] tel:[phone] [facility] MRA RESULT (chief complaint) Bronchitis, AcuteHEADACHE SYNDROME NEC 1 Nataliia Sesay. 70 [facility], [id number] 00, [place], [address], [place]. [facility], [address] [place] [address], [facility], tel:[phone] [place] [address] NECK PAIN (chief complaint) UTI, UnspecifiedCERVICAL DISC DEGEN 0 Nataliia Sesay. 70 [facility], [id number] 00, [place], [place], [facility], [place]. 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 3 [place], [id number] [place], [place], [address], . tel:[phone] [facility], [address] [place] [address], [facility], tel:[phone] [place] [address] Cough x 1wk (chief complaint) ACUTE SINUSITIS NOS 0 Vanessa Raygozaica. 3 [place], [id number] [place] [address], [address], . tel:[phone] [facility], [address] [place] [address], [facility], tel:[phone] [place] [address] smoking cessation (chief complaint) Smoker, Current,Smoker, Current,ALLERGIC RHINITIS NOSALLERGIC RHINITIS NOS Fe- 0 Necsutu Lydia. [address] [place], [address], [place]. tel:[phone] [facility], [address] [place] [address], [facility], tel:[phone] [place] [address] No Information 5-200 6 Batsheva Winters. 70 [facility], [id number] [address], [place], [facility], [place]. tel:[phone] Family History Family Member Type Diagnosis Age At Onset Father Problem (finding) raised blood lipids Father Problem (finding) coronary arterioscleros is Mother Problem (finding) Mother Problem (finding) chronic obstru ctive lung disease (Cause Of ) Immunizations Vaccine Date Status Comments Tdap administered Source: [facility] unization Record Payers Payer name Insurance type Covered alliance party ID Marily powell(s) [facility] [id number] Social History Type Description Quantity Date Captured [...] Goal Tobacco cessation counseling completed Referral Ordered: Obstetrics/Set Off Blocker (related to Pap Abnormal HPV) ordered Referral Referred To: Benjamín Lund MD [address] [place], [address] [id number] Ordered: Referral: Obstetrics/Set Off Blocker Benjamín Lund MD ordered Future Order: Lab Order Gynecolo gic Pap Test ([id number]), Sent on: Sent Future Order: Lab Order CBC With Differential/Platelet ([id number]), Appointment on: , Sent on: Sent Future Order: Lab Order Comp. Me tabolic Panel (14) ([id number]), Sent on: Sent Future Order: Lab Order Lipid Pa cayetano ([id number]), Sent on: Sent Future Order: Lab Order TSH ([id number]), Sen t on: Sent Future Order: Lab Order Urinalys is, Complete ([id number]), Sent on: Sent History Of Present Illness [...] Mental Status Date Cognitive Assessment Orientation - [place] ed to time, place, person, situation.
[2025-02-25 08:49] VITALS: BP 120/86; PULSE 83; TEMP 37.1; O2SAT 97
--- NOTE | 2025-02-25 08:49 | AM.OFFWIN_ITS ---
Intake Vital Signs 02/25/25 08:49 Weight 190 lb BP 120/86 Blood Pressure Location Rt brachial Position Sitting Pulse 83 Pulse Source Pulse Oximeter Temp 98.8 F Temp Source Oral Pulse Oximetry (%) 97 Oxygen Delivery Method Room Air Intake Visit Reasons: EP-cough, dizziness, sob, phlegm Intake Note: Patient here for cough, chest tightness, phlegm and fevers that started Tuesday. Patient Tobacco Use Status: Current everyday Tobacco user Allergies No Known Allergies [No Known Allergies*] Allergy (Verified 11/20/24 09:45) Do you need a note to return to daycare/school/sports/work: Yes HPI HPI Comments History of Present Illness Details 54 y/o Female patient who presents to [facility] with c/o URI symptoms since Tuesday. Pt c/o Cough, chest congestion/tightness, subjective fevers, fatigue and headaches. [facility] Medical History (Updated 02/25/25 @ 09:33 by Jacquie Pavon NP) Cough High cholesterol Surgical History History of Family History Mother COPD (chronic obstructive pulmonary disease) Father Heart attack Sister Osteoporosis Arthritis Sister Fibromyalgia Acute back pain with sciatica Sister Pacemaker Sister Hypothyroid Cancer Brother Hyperthyroidism Family/Other Substance use disorder Mental health disorder Social History Housing: House Alcohol intake: never Patient Tobacco Use Status: Current everyday Tobacco user Tobacco use type: Cigarette Cigarettes Per Day: 4 e-Cigarette/Vaping Use: Never Used Second Hand Smoke Exposure: No service: No Current occupational status: employed Current occupational exposures/hazards: No Cognitive needs: No Hearing needs: No Vision needs: No Review of Systems Const All systems reviewed & are unremarkable except as noted in HPI and below Physical Exam Vital Signs: Last Vital Signs Temp 98.8 F 02/25/25 08:49 Pulse 83 02/25/25 08:49 BP 120/86 02/25/25 08:49 Pulse Ox 97 02/25/25 08:49 Oxygen Delivery Method Room Air 02/25/25 08:49 Const General: no acute distress Nutritional Appearance: obese Orientation/consciousness: patient oriented x3 HEENT Head: Yes normocephalic Ears: external ears normal and TM abnormal bulging bilateral and with fluid behind the TM bilateral General nose exam: Normal external nose present Face and sinus: Yes sinuses nontender Mouth: moist mucous membranes Throat: Yes uvula midline Resp Effort & Inspection: normal respiratory effort Auscultation: no crackles, no rales, rhonchi, wheezes and diminished lung sounds Cardio Heart sounds: S1 normal heart sound present and S2 normal heart sound present Neuro General: patient oriented x3 Assessment & Plan Assessment & Plan (1) Cough: Code(s): R05.9 - Cough, unspecified Qualifiers: Cough type: acute Qualified Code(s): R05.1 - Acute cough Plan: Ordered Chest Xray. Ordered Z-pack, Steroids and Benzonatate. Rest and hydrate well with warm fluids. Acetaminophne for pain and fever relief. Orders: Orders XR chest 2V Today R05.9 - Cough, unspecified Medications: New benzonatate 200 mg (2 x 100 mg) PO BID 60 caps 0RF R05.9 - Cough, unspecified azithromycin 500 mg PO DAILY 3 days 3 tabs 0RF R05.9 - Cough, unspecified prednisone 50 mg PO DAILY 5 days 5 tabs 0RF R05.9 - Cough, unspecified Coding Level of Care Code Est Pt Level 4 (73739) Diagnoses Acute cough R05.1 Cough type: acute Time Spent (min) 20
== END 2025-02-25 10:20 | disposition home or self-care (01) ==
PROVIDERS: PCP Internal Medicine; Visit Provider Nurse Practitioner Family
DX: R05.1 Acute cough (principal)

== ENCOUNTER → 2025-02-25 09:30 | Outpatient (BNV) | payer OTHER, SELFPAY | PROVIDERS: PCP Internal Medicine; Visit Provider Radiology Diagnostic Radiology | DX: R05.9 Cough, unspecified (principal) | CPT/HCPCS: 71046 ==

== ENCOUNTER 2025-03-05 08:37 | Outpatient (AMB) | payer OTHER, SELFPAY ==
--- OUTSIDE RECORDS SUMMARY | 2025-03-05 08:50 | XMS_ITS | Clinical Summary ---
Author Organization [facility] ity Address [address] [place] [address] Care Team Providers Care Photographic Platemaker Name Role Phone Unavailable Primary Care Provider [...]
--- OUTSIDE RECORDS SUMMARY | 2025-03-05 08:50 | XMS_ITS | Continuity of Care Document ---
Author Organization [facility] Address [address] [place] [address] Phone Care Team Providers Care Field Service Coordinator Name Role Phone Kasey Rousseau APN Unavailable [...] Diagnoses Date Provider Office/outpat ient visit,est, mod [facility], [address] [place] [address], [facility], [place] tel:[phone] [facility] Acute otitis media, bilateralAcute non-recurrent maxillary sinusitisBody mass index (BMI) 35.0-35.9, adult 6 Soham Parks. Margarito Elmore, [id number] [address] [place] [address], [address], . tel:[phone] [facility], [address] [place] [address], [facility], [place] tel:[phone] [place] [address] cold symptoms (chief complaint) Acute sinusitis, unspecifiedBody mass index (BMI) 34.0-34.9, adult 6 Laney Calhoun. Margarito JmMary Anne KelseySimon Angela, [id number] 00, [place], [address], [place]. tel:[phone] [facility], [address] [place] [address], [facility], [place] tel:[phone] [place] [address] red eye (chief complaint) Bacterial conjunctivitis 5 Soham Parks. Dilma5 Apryl Miller., [id number] 00, [place], [address], [place]. tel:[phone] [facility], [address] [place] [address], [facility], tel:[phone] [address] [place] [address] red arm (chief complaint) Local reaction to tetanus vaccineTetanus vaccine causing adverse effect in therapeutic use 5 Batsheva Vianey. 70 [facility] [address] [facility], [id number] [place], [place], [address], [place]. tel:[phone] [facility], [address] [place] [address], [facility], [place] tel:[phone] [address] [place] [address] pap referral (chief complaint)cons tipation (chief complaint) ConstipationPap Abnormal HPV 5 Batsheva Vianey. 70 [facility] [address] [facility], [id number] [place], [place], [facility], [place]. tel:[phone] [facility], [address] [place] [address], [address], [place] tel:[phone] [place] [address] cold symptoms (chief complaint) Bronchitis 4 Batsheva Vianey. 70 [facility], [id number] [place], [place], [address], [place]. tel:[phone] [facility], [address] [place] [address], [address], [place] tel:[phone] [address] [place] [address] Work physical. (chief complaint) Annual Adult PhysicalEXAM ROUTINE - MED EXAM NEC-ADMIN PURP Dec-0 3 Janette Danielejagkareem lee. Opal Miller, [id number] 00, [place], [address], [place]. tel:[phone] [facility], [address] [place] [address], [address], [place] tel:[phone] [address] [place] [address] abcess (chief complaint) Abscess Of Vulva NEC 3 Gustavosimeon Fabi. [address], [id number] 00, [place], [address], [place]. [facility], [address] [place] [address], [address], tel:[phone] [place] [address] abnormal pap (chief complaint)faci al pain+ cough nonproductive (chief complaint)inso mnia (chief complaint) Pap Abnormal HPVInsomnia, OtherInsomnia, Other Sep- 1 Necsutu Lydia. [address] [place] [address], [address], [place]. tel:[phone], [address], [place] tel:[phone] [phone] [place] [address] annual pap; no complains (chief complaint) Pap Abnormal HPV May- 1 Necsutu Lydia. [address] [place] [address], [address], [place]. tel:[phone] [facility], [address] [place] [address], [address], [place] tel:[phone] [address] [place] [address] Old abnormal bleeding (chief complaint) DUB - MENSTRUAL DISORDER NEC Dec-2 1 Vanessa Childers. [address] [place] [address], [id number] [address]CC, [place], [address], [place]. tel:[phone], [address], [place] tel:[phone] [facility] MRA RESULT (chief complaint) Bronchitis, AcuteHEADACHE SYNDROME NEC 1 Nataliia Sesay. 70 [facility], [id number] 00, [place], [address], [place]. [facility], [address] [place] [address], [facility], tel:[phone] [place] [address] NECK PAIN (chief complaint) UTI, UnspecifiedCERVICAL DISC DEGEN 0 Nataliia Sesay. 70 [facility], [id number] 00, [place], [place], [facility], [place]. 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 [address] [place], [id number] [place], [place], [address], . tel:[phone] [facility], [address] [place] [address], [facility], tel:[phone] [address] [place] [address] Cough x 1wk (chief complaint) ACUTE SINUSITIS NOS 0 Vanessa Raygozaica. [address] [place], [id number] [place] [address], [address], . tel:[phone] [facility], [address] [place] [address], [facility], tel:[phone] [address] [place] [address] smoking cessation (chief complaint) Smoker, Current,Smoker, Current,ALLERGIC RHINITIS NOSALLERGIC RHINITIS NOS Fe- 0 Necsutu Lydia. [address] [place], [address], [place]. tel:[phone] [facility], [address] [place] [address], [facility], tel:[phone] [address] [place] [address] No Information 5-200 6 Batsheva Winters. 70 [address] [facility], [id number] [place], [place], [facility], [place]. tel:[phone] Family History Family Member Type Diagnosis Age At Onset Father Problem (finding) raised blood lipids Father Problem (finding) coronary arterioscleros is Mother Problem (finding) Mother Problem (finding) chronic obstru ctive lung disease (Cause Of ) Immunizations Vaccine Date Status Comments Tdap administered Source: [facility] unization Record Payers Payer name Insurance type Covered democrat ID Marily powell(s) [facility] [id number] Social History Type Description Quantity Date Captured [...] Goal Tobacco cessation counseling completed Referral Ordered: Obstetrics/Nut Picker (related to Pap Abnormal HPV) ordered Referral Referred To: Benjamín Lund MD [address] [place], [id number] Ordered: Referral: Obstetrics/Nut Picker Benjamín Lund MD ordered Future Order: Lab Order Gynecolo gic Pap Test ([id number]), Sent on: Sent Future Order: Lab Order CBC With Differential/Platelet ([id number]), Appointment on: , Sent on: Sent Future Order: Lab Order Comp. Me tabolic Panel (14) ([id number]), Sent on: Sent Future Order: Lab Order Lipid Pa cayetano ([id number]), Sent on: Sent Future Order: Lab Order TSH ([id number]), Sen t on: Sent Future Order: Lab Order Urinalys is, Complete ([id number]), Sent on: Sent History Of Present Illness [...] Mental Status Date Cognitive Assessment Orientation - [place] ed to time, place, person, situation.
--- NOTE | 2025-03-05 08:54 | AM.OFFWIN_ITS ---
Intake Vital Signs 03/05/25 08:55 Weight 190 lb BP 130/90 H Blood Pressure Location Rt brachial Position Sitting Pulse 92 Pulse Source Pulse Oximeter Temp 98.3 F Temp Source Oral Pulse Oximetry (%) 97 Oxygen Delivery Method Room Air Intake Visit Reasons: EP cough, chest congestion Intake Note: Patient here for cough, eyes have burning sensation, head pressure and chest congestion. Patient Tobacco Use Status: Current everyday Tobacco user Allergies No Known Allergies [No Known Allergies*] Allergy (Verified 03/05/25 08:56) Do you need a note to return to daycare/school/sports/work: Yes HPI HPI Comments History of Present Illness Details This is a 54-year-old female with a past medical history of seasonal allergies presenting for evaluation of cough, sinus pressure and burning of her eyes. Patient does not take any medication for treatment of her seasonal allergies. She was seen here in urgent care last week and prescribed prednisone, azithromycin and Tessalon Perles without any relief of her symptoms. Patient denies having any fevers, chills, chest pain, otalgia, pharyngitis or shortness of breath. [facility] Medical History (Updated 03/05/25 @ 09:24 by Tamera Rogers PA-C) Cough High cholesterol Surgical History History of Family History Mother COPD (chronic obstructive pulmonary disease) Father Heart attack Sister Osteoporosis Arthritis Sister Fibromyalgia Acute back pain with sciatica Sister Pacemaker Sister Hypothyroid Cancer Brother Hyperthyroidism Family/Other Substance use disorder Mental health disorder Social History Housing: House Alcohol intake: never Patient Tobacco Use Status: Current everyday Tobacco user Tobacco use type: Cigarette Cigarettes Per Day: 4 e-Cigarette/Vaping Use: Never Used Second Hand Smoke Exposure: No service: No Current occupational status: employed Current occupational exposures/hazards: No Cognitive needs: No Hearing needs: No Vision needs: No Review of Systems Const All systems reviewed & are unremarkable except as noted in HPI and below Denies chills, Reports fatigue, Denies fever(s) and Reports headache(s) Eyes Reports as per HPI ( burning sensation in her eyes) ENT Denies otalgia, Reports headache(s), Reports nasal congestion, Denies odynophagia, Reports sinus pressure and Denies sore throat Card Reports no additional complaints and Denies dyspnea Resp Reports chest congestion, Reports cough, Denies dyspnea and Denies wheezing GI Reports no additional complaints and Denies odynophagia Reports no additional complaints Musc Reports no additional complaints Skin/Breast Reports system reviewed and no additional complaints, except as documented Neuro Reports no additional complaints and Reports headache(s) Psych Reports no additional complaints Endo Reports no additional complaints and Reports fatigue Elier/Lymph Reports no additional complaints Aller/Immun Reports no additional complaints and Denies wheezing Physical Exam Vital Signs: Last Vital Signs Temp 98.3 F 03/05/25 08:55 Pulse 92 03/05/25 08:55 BP 130/90 H 03/05/25 08:55 Pulse Ox 97 03/05/25 08:55 Oxygen Delivery Method Room Air 03/05/25 08:55 Const General: cooperative; No ill appearing Nutritional Appearance: average body habitus Orientation/consciousness: patient oriented x3 Limitations: no limitations HEENT Head: Yes normal to inspection and Yes normocephalic Ears: hearing grossly normal bilaterally, external ears normal, TM's abnormal bilaterally (TMs bulging bilaterally without erythema or fluid level) and EAC's normal General nose exam: Normal external nose present Face and sinus: Yes normal facial exam Mouth: Normal oral and palatal mucosa present and moist mucous membranes Throat: Yes postnasal drainage Eyes General: appearance normal, both eyes and all related structures Visual Lowery: normal visual lowery by confrontation Periorbital: periorbital findings normal Eyelids: Yes eyelids normal Conjunctivae: conjunctivae normal EOM: EOMs intact bilaterally Neck Lymphatic: no lymphadenopathy noted Resp Effort & Inspection: normal respiratory effort, able to speak in complete sentences, no cough and not tachypneic Auscultation: clear to auscultation bilaterally Cardio Rate: regular rate Rhythm: regular rhythm Neuro General: patient oriented x3 Psych Appearance: grossly normal Mental Status: mental status grossly normal Insight: Good insight present (Psych) Judgement: Good judgement present (Psych) Assessment & Plan Assessment & Plan (1) Allergic rhinitis: Comment: There is no evidence of an acute bacterial sinusitis or pharyngitis. Patient will be discharged home with antihistamine and nasal steroid spray. Code(s): J30.9 - Allergic rhinitis, unspecified Qualifiers: Allergic rhinitis trigger: unspecified Allergic rhinitis seasonality: seasonal Qualified Code(s): J30.2 - Other seasonal allergic rhinitis Plan: Fluticasone 1 spray each nostril once daily, loratadine once daily times 30 days. Medications: New fluticasone propionate 50 mcg/actuation administer into each nostril 1 spray intranasal DAILY 16 grams 1RF loratadine (Allergy Relief (loratadine)) 10 mg PO DAILY 30 caps 0RF Coding Level of Care Code Est Pt Level 3 (13490) Diagnoses Seasonal allergic rhinitis, unspecified trigger J30.2 Allergic rhinitis trigger: unspecified Allergic rhinitis seasonality: seasonal
[2025-03-05 08:55] VITALS: BP 130/90; PULSE 92; TEMP 36.8; O2SAT 97
== END 2025-03-05 09:21 | disposition home or self-care (01) ==
PROVIDERS: PCP Internal Medicine; Visit Provider Physician Assistant
DX: J30.2 Other seasonal allergic rhinitis (principal)

== ENCOUNTER → 2025-03-05 08:37 | Outpatient (BNVA) | payer OTHER, SELFPAY | PROVIDERS: PCP Internal Medicine; Visit Provider Physician Assistant | DX: J30.2 Other seasonal allergic rhinitis (principal) | CPT/HCPCS: 99212 ==

== ENCOUNTER 2025-09-17 12:26 | Outpatient (AMB) | payer OTHER, SELFPAY ==
--- NOTE | 2025-09-17 12:42 | A.OFFPC_ITS ---
Vital Signs 09/17/25 12:44 Height 5 ft 1 in Weight 196 lb 8 oz BMI 37.1 BP 122/68 Blood Pressure Location Lt brachial Position Sitting Pulse 90 Pulse Source Pulse Oximeter Temp 97.5 F Temp Source Temporal Artery Scan Pulse Oximetry (%) 98 Oxygen Delivery Method Room Air Intake Visit Reasons: Annual Exam Intake Note: Patient is here today for a physical. Dredge Runner Required: No Foster Care Worker: Not Required per policy Accompanied by: Self / Same As Patient Allergies No Known Allergies (No Known Allergies*) Allergy (Verified 09/17/25 12:55) Medication List - Last Reconciled 09/17/25 by Deana Mcdowell MD fluticasone propionate 50 mcg/actuation 1 spray intranasal DAILY loratadine (Allergy Relief (loratadine)) 10 mg PO DAILY Tobacco use date assessed: 09/17/25 Dental Screening Dental Screen Date: 09/17/25 Did you have a dental visit in the last 12 months?: No Did you have a dental problem in the last 6 months where you did not have access to dental care?: No Was dental information given to patient?: No HPI HPI Comments History of Present Illness Details The patient is a 55 year old individual presenting for an annual physical examination. The patient reports new onset right shoulder pain, for which the patient has been using castor oil and a heat pad at home. The patient has a past surgical history of a section 34-35 years ago. The patient has no known drug allergies and uses a nasal spray and loratadine f or environmental allergies. The last laboratory evaluation for cholesterol was approximately three years ago, at which time blood sugar was noted to be slightly elevated. The patient's family history is significant for the patient's mother who from COPD and father who from a myocardial infarction. The patient's sister has esophageal cancer. The patient is overdue for a mammogram, colonoscopy, and Pap smear, and is awaiting resolution of an insurance issue before scheduling these screenings. The patient prefers to have a colonoscopy rather than a Cologuard test. The patient's last tetanus vaccination was in 2021 and reportedly caused a significant illness. The patient reports being allergic to the flu vaccine and declines all current immunizations. [facility] Medical History (Updated 09/17/25 @ 13:12 by Deana Mcdowell MD) Cough High cholesterol Surgical History History of Family History Mother COPD (chronic obstructive pulmonary disease) Father Heart attack Sister Osteoporosis Arthritis Sister Fibromyalgia Acute back pain with sciatica Sister Pacemaker Sister Hypothyroid Cancer Brother Hyperthyroidism Family/Other Substance use disorder Mental health disorder Social History Housing: House Alcohol intake: never Patient Tobacco Use Status: Current everyday Tobacco user Tobacco use type: Cigarette Cigarette Packs Per Day: 0.25 Cigarettes Per Day: 2 e-Cigarette/Vaping Use: Never Used Second Hand Smoke Exposure: Yes service: No Current occupational status: employed Current occupational exposures/hazards: No Cognitive needs: No Hearing needs: No Vision needs: No Questionnaire PHQ-9 Over the last 2 weeks, how often have you been bothered by any of the following problems? 1. Little interest or pleasure in doing things: not at all 2. Feeling down, depressed, or hopeless: not at all 3. Trouble falling or staying asleep, or sleeping too much: not at all 4. Feeling tired or having little energy: not at all 5. Poor appetite or overeating: not at all 6. Feeling bad about yourself - or that you are a failure or have let yourself or your family down: not at all 7. Trouble concentrating on things, such as reading the newspaper or watching television: not at all 8. Moving or speaking so slowly that other people could have noticed. Or the opposite - being so fidgety or restless that you have been moving around a lot more than usual: not at all 9. Thoughts that you would be better off or of hurting yourself in some way: not at all Total score: 0 Depression Screening Interpretation: Negative Depression Screening Done: Yes 80649 - PHQ-9 Billing: Yes Source: Developed by Drs. Alvino Wang, Jannette Covarrubias, Joce Zimmerman and colleagues, with an educational nakul from [employer]. Thrive Questionnaire Date Thrive assessed: 09/17/25 I am a: Patient What is your living situation today?: I have a steady place to live Within the past 12 months, did the food you bought not last and you didn't have the money to get more?: Never true Within the past 12 months, did you worry whether your food would run out before you got money to buy more?: Never true Do you have trouble paying for medicines?: No Do you have trouble getting transportation to medical appointments?: No Do you have trouble paying your heating and electricity bill?: No Do you have trouble taking care of your child, family member or friend?: No Do you have trouble with day-to-day activities such as bathing, preparing meals, shopping, managing finances, etc.?: No Are you currently unemployed and looking for a job?: No Are you interested in more education?: No Please select the resources that you would like help with: None Currently or been in a relationship where the following occur: No concerns reported THRIVE Score: 0 AUDIT C Alcohol Use Questionnaire (AUDIT-C) 1. How often do you have a drink containing alcohol?: Never Total Score: 0 Score Reviewed/Action Taken: No DEVON-7 AMB Questionnaire DEVON-7 Date DEVON - 7 assessed: 09/17/25 Feeling nervous, anxious, or on edge: 0 = Not at all Not being able to stop or control worryin = Not at all Worrying too much about different things: 0 = Not at all Trouble relaxin = Not at all Being so restless that it is hard to sit still: 0 = Not at all Becoming easily annoyed or irritable: 0 = Not at all Feeling afraid as if something awful might happen: 0 = Not at all Total DEVON-7 score (0-4 normal; 5-9 mild; 10-14 moderate; 15-21 severe): 0 Source: Developed by Drs. Alvino Wang, Jannette Covarrubias, Joce Zimmerman and colleagues, with an educational nakul from [employer]. DEVON-7 Assessment Billing DEVON-7 Assessment Tool: DEVON-7 Assessment 85642 Review of Systems Const All systems reviewed & are unremarkable except as noted in HPI and below Card Denies chest pain at rest, Denies chest pain with activity, Denies edema, Denies irregular heart rhythm, Denies claudication, Denies dyspnea, Denies dyspnea on exertion, Denies orthopnea, Denies paroxysmal nocturnal dyspnea and Denies slow heart rate Resp Denies cough, Denies dyspnea and Denies dyspnea on exertion Physical exam (Primary Care) Vital Signs: Last Vital Signs Temp 97.5 F 09/17/25 12:44 Pulse 90 09/17/25 12:44 BP 122/68 09/17/25 12:44 Pulse Ox 98 09/17/25 12:44 Oxygen Delivery Method Room Air 09/17/25 12:44 BMI result Body Mass Index 37.1 BMI Assessment/Plan discussion: High BMI High, discussed plan: lifestyle, weight reduction, dietary and physical activity Tobacco/Smoking Status: Tobacco use Status Tobacco use date assessed 09/17/25 09/17/25 12:49 Patient Tobacco Use Status Current everyday Tobacco 09/17/25 12:49 Tobacco use type Cigarette 09/17/25 12:49 e-Cigarette/Vaping Use Never Used 09/17/25 12:49 Are you ready to quit: Yes Tobacco cessation counseling provided: Yes Items discussed: Nicotine replacement and QuitWorks Relapse Prevention: discussed the importance of a supportive environment, discussed extending NRT, discussed negative mood or depression after quitting, weight gain after smoking is common and discussed dietary, exercise and/or lifestyle changes Number of minutes spent counselin CPT code: 45532 - 4-10 Minutes PHQ-9: PHQ-9 Score PHQ-9: Total score 0 09/17/25 12:49 Depression Screening Interpretation: Negative Thrive Assessment: Date of Thrive Assessment Date Thrive assessed 09/17/25 09/17/25 12:49 Currently or been in a relationship where the following occur: No concerns reported [facility] Head: Yes normal to inspection, Yes normocephalic and Yes atraumatic Ears: external ears normal Eyes General: appearance normal, both eyes and all related structures Eyelids: Yes eyelids normal Conjunctivae: conjunctivae normal Neck Neck: Yes normal visual inspection and Yes supple Resp Effort & Inspection: normal respiratory effort Auscultation: clear to auscultation bilaterally Cardio Jugular venous distension: no JVD Rate: regular rate Rhythm: regular rhythm Heart sounds: S1 normal heart sound present and S2 normal heart sound present GI Inspection: Yes normal to inspection Palpation (GI): Soft to palpation and nontender Auscultation: normal bowel sounds Skin General skin exam: no rashes or lesions noted Neuro General: no focal motor deficits Extrem General: Yes full ROM Psych Appearance: grossly normal Coding Level of Care Code Est Pt Level 3 (04037) Est Pt Prev Care 40-64y(55670) Diagnoses Physical exam Z00.00 Right shoulder pain M25.511 Additional Codes PHQ-9 - 31451 - PHQ-9 Billing: Yes ([id number]) DEVON-7 Assessment Billing - DEVON-7 Assessment Tool: DEVON-7 Assessment 72593 ([id number]) Vital Signs *Quality* - CPT code: 45194 - 4-10 Minutes ([id number]) Time Spent (min) 33 Assessment & Plan Assessment & Plan (1) Physical exam: Code(s): Z00.00 - Encounter for general adult medical examination without abnormal findings Category: Medical (2) Right shoulder pain: Code(s): M25.511 - Pain in right shoulder Category: Medical Plan Plan 1. Annual Physical Examination The patient presents for a routine annual physical for which a letter of completion will be provided for work. Orders will be placed for laboratory studies, including cholesterol profile, glucose level, and a T-spot test for tuberculosis screening, which are valid for three months.The patient has de clined the recommended tetanus and influenza vaccinations due to a history of adverse reactions. The patient's decision is noted. 2. Arthralgia Of Right Shoulder For the patient's right shoulder pain, [id number] topical treatments such as BioFreeze and Arnica are recommended. A prescription for ibuprofen will be sent to the patient's pharmacy, [facility] on [facility]. Orders: Orders Lipid Panel Today E78.5 - Hyperlipidemia, unspecified Comprehensive Maize. Panel Fast Today Z00.00 - Encounter for general adult medical examination without abnormal findings T Spot TB Today Z11.1 - Encounter for screening for respiratory tuberculosis Vitamin D 25-OH Total Today E55.9 - Vitamin D deficiency, unspecified Medications: New ibuprofen 800 mg PO Q8H PRN 90 tabs 2RF pain 30 days Refilled loratadine (Allergy Relief (loratadine)) 10 mg PO DAILY 30 caps 0RF fluticasone propionate 50 mcg/actuation administer into each nostril 1 spray intranasal DAILY 16 grams 1RF
[2025-09-17 12:44] VITALS: BP 122/68; PULSE 90; TEMP 36.4; O2SAT 98; BMI 37.1
--- OUTSIDE RECORDS SUMMARY | 2025-09-17 14:23 | XMS_ITS | Clinical Summary ---
Author Organization [facility] ity Address [address] [place] [address] Care Team Providers Care Powerbuilder Name Role Phone Unavailable Primary Care Provider [...] Last Done Comments Breast Cancer Screening 1969 Colorectal Cancer Screening: Colonoscopy 1969 DTaP,Tdap,and Td Vaccines (1 - Tdap) 1988 Hepatitis B Vaccines (1 of 3 - 19+ 3-dose series) 1988 Cervical Cancer Screening: P ap Smear 1990 Pneumococcal Vaccine: 50+ Ye ars (1 of 1 - PCV) 2019 Zoster Vaccines (1 of 2) 2019 HIV Screening 05/09/2024 Hepatitis C Screening 05/09/2024 Social Influencers of Health Screening 05/09/2024 Depression Screening 10/17/2024 COVID-19 Vaccine (1 - 2024-2 6 season) 2025 Influenza Vaccine (#1) 2025 RSV Immunization Adult Patie nts (1 - 1-dose 75+ series) 2044 HIB Vaccines Aged Out No longer eligi [...]
== END 2025-09-17 13:12 | disposition home or self-care (01) ==
LOC: HO.HMCH 12:26
PROVIDERS: PCP Internal Medicine; Visit Provider Internal Medicine
DX: Z00.00 Encounter for general adult medical examination without abnormal findings (principal); M25.511 Pain in right shoulder; F17.210 Nicotine dependence, cigarettes, uncomplicated

== ENCOUNTER → 2025-09-17 12:26 | Outpatient (BNVA) | payer OTHER, SELFPAY | PROVIDERS: PCP Internal Medicine; Visit Provider Internal Medicine | DX: Z00.00 Encounter for general adult medical examination without abnormal findings (principal); M25.511 Pain in right shoulder | CPT/HCPCS: 96127; 99212; 99396 ==